=== PATIENT | female | born 1990 | race Caucasian/White ===

== ENCOUNTER 2020-03-28 09:41 | Emergency (ER) | payer OTHER ==
[~2020-03-28] VITALS: Ht 132.1 cm; Wt 52.3 kg
--- NOTE | 2020-03-28 10:39 | EKG ---
[facility] [address] [place], [place] [address] Signed Atrial flutter with variable AV block Incomplete right bundle branch block Inferior infarct , age undetermined Abnormal ECG No previous ECGs available Confirmed by DEDRA LARSEN MD ([id number] on 03/28/2020 10:39:06 AM Electronically Signed By: DEDRA LARSEN MD 03/28/20 1039 PATIENT NAME: PRANAV QUEVEDO Electrocardiogram DATE OF : 89 PHYSICIAN: DEDRA LARSEN MD REPORT #: [id number] REPORT IS CONFIDENTIAL AND NOT TO BE RELEASED WITHOUT AUTHORIZATION
== END 2020-03-28 11:39 | disposition home or self-care (01) ==
LOC: ED 09:41
DX: I48.92 Unspecified atrial flutter (principal); Q90.9 Down syndrome, unspecified; Z88.8 Allergy status to other drugs, medicaments and biological substances
CPT/HCPCS: 93005; 93010; 99284-25